=== PATIENT | female | born 1960 | race Caucasian/White ===

== ENCOUNTER → 2017-04-28 | Outpatient (CLI) | payer BC ==
[~2017-04-28] MED LIST: ASPI1TAB15 PO; OMEG100011 PO; VITA100066 PO; VITMTA PO
[2017-04-28 18:46] LABS: ALBUMIN 4.2 GM/DL (3.2-5.2); ALKALINE PHOSPHATASE 85 U/L (45-117); ALT/SGPT 29 U/L (12-78); ANION GAP 9 MEQ/L (8-16); AST/SGOT 17 U/L (15-37); BILIRUBIN,TOTAL 0.5 MG/DL (0.2-1.0); BLOOD UREA NITROGEN 15 MG/DL (7-18); CALCIUM LEVEL 9.2 MG/DL (8.5-10.1); CARBON DIOXIDE LEVEL 28 MEQ/L (21-32); CHLORIDE LEVEL 107 MEQ/L (98-107); CREATININE FOR GFR 0.77 MG/DL (0.55-1.02); GLOMERULAR FILTRATION RATE > 60.0 (>51); GLUCOSE, FASTING 80 MG/DL (70-105); PERCENT SATURATION 19.4 % (13.2-37.4); POTASSIUM SERUM 4.2 MEQ/L (3.5-5.1); SODIUM LEVEL 144 MEQ/L (136-145); TOTAL IRON BINDING CAPACITY 407 UG/DL (250-450); TOTAL PROTEIN 7.2 GM/DL (6.4-8.2)
[2017-04-28 18:54] LABS: BASO % 0.6 % (0.0-1.0); EOS # 0.1 K/mm3 (0.0-0.50); EOS % 1.7 % (0.0-3.0); LARGE UNSTAINED CELL # 0.1 K/mm3 (0.0-0.4); LARGE UNSTAINED CELL % 1.4 % (0.0-4.0); LYMPH # 1.6 K/mm3 (1.5-4.5); LYMPH % 26.1 % (24.0-44.0); MEAN CORPUSCULAR HEMOGLOBIN 28.7 pg (27.0-33.0); MEAN CORPUSCULAR HGB CONC 33.2 g/dl (32.0-36.5); MEAN CORPUSCULAR VOLUME 86.4 fl (80.0-96.0); MONO # 0.4 K/mm3 (0.0-0.8); MONO % 6.8 % (0.0-5.0); NEUTROPHILS # 3.6 K/mm3 (1.8-7.7); NEUTROPHILS % 63.4 % (36.0-66.0); PLATELET COUNT, AUTOMATED 348 k/mm3 (150-450); RED CELL DISTRIBUTION WIDTH 15.4 % (11.5-14.5); WHITE BLOOD COUNT 5.7 K/mm3 (4.0-10.0)
[2017-05-02 00:07] LABS: Lyme Disease IgG/IgM Antibodie <0.91 ISR (0.00-0.90); Lyme Disease IgM Ab Quantitati <0.80 index (0.00-0.79)
== END ==
LOC: M ADAMS 12:42
PROVIDERS: ATTEND Physician Assistant
DX: R53.83 Other fatigue (principal)

== ENCOUNTER → 2017-11-01 | Outpatient (CLI) | payer BC | LOC: M ADAMS 10:39 | DX: J21.0 Acute bronchiolitis due to respiratory syncytial virus (principal) | CPT/HCPCS: 71046 ==

== ENCOUNTER → 2018-05-11 | Outpatient (REF) | payer BC | LOC: M LAB REF 09:37 | DX: N39.0 Urinary tract infection, site not specified (principal) | CPT/HCPCS: 87186 ==

== ENCOUNTER → 2018-06-12 | Outpatient (REF) | payer BC | LOC: M LAB REF 16:38 | DX: N39.0 Urinary tract infection, site not specified (principal) | CPT/HCPCS: 87086 ==

== ENCOUNTER 2018-07-13 07:38 | Emergency (ER) | payer BC ==
[2018-07-13] MEDS: traMADol 50 MG TAB PO (08:24)
[2018-07-13] MEDS: ACETAMINOPHEN 325 MG TAB PO (08:25)
== END 2018-07-13 09:21 | disposition home or self-care (01) ==
LOC: M ED 07:38
DX: S39.002A Unspecified injury of muscle, fascia and tendon of lower back, initial encounter (principal); X50.0XXA Overexertion from strenuous movement or load, initial encounter; Y92.018 Other place in single-family (private) house as the place of occurrence of the external cause; M62.838 Other muscle spasm; A69.20 Lyme disease, unspecified; G43.909 Migraine, unspecified, not intractable, without status migrainosus; Z88.1 Allergy status to other antibiotic agents
CPT/HCPCS: 99283

== ENCOUNTER → 2019-01-14 | Outpatient (CLI) | payer BC ==
[~2019-01-14] MED LIST changes: +IBUP-1022 PO; +IBUP80TA PO; +PROHANCE 279.3MG/ML 15ML VIAL (A9576) As Ordered ONE; +ULTR50TA8 PO
--- NOTE | 2019-01-14 12:26 | REP ---
MR LUMBAR SPINE WITH AND WITHOUT CONTRAST: HISTORY: Post laminectomy syndrome. CONTRAST: 12 mL. COMPARISON: 01/14/2019 Decreased signal intensity on T2-weighted images is present in the L2-3, L3-4, and L5-S1 intervertebral discs. The discs are decreased in height. These findings are consistent with disc degeneration. There is no disc bulge or herniation at the L1-2 level. The L1 nerves exit the neural foramina without compression. A diffuse disc bulge is present at the L2-3 level. There is minimal compression of the thecal sac. There is hypertrophy of the ligamenta flava and posterior articulating facets. The L2 nerves exit the neural foramina without compression. A diffuse disc bulge is present at the L3-4 level. There is hypertrophy of the ligamenta flava and posterior articulating facets. These findings produce mild central canal stenosis. The L3 nerves exit the neural foramina without compression. A diffuse disc bulge is present at the L4-5 level. This abuts the thecal sac. There is hypertrophy of the posterior articulating facets. The L4 nerves exit the neural foramina without compression. A laminectomy defect is present. Enhancing scar tissue is present at the laminectomy site and in the lateral aspect of the spinal canal. The scar tissue involves the L5 nerves. A diffuse disc bulge is present at the L5-S1 level. There is no thecal sac compression. There is hypertrophy of the posterior articulating facets. The L5 nerve exits the neural foramina without compression. A laminectomy defect is present. Enhancing scar tissue is present at the laminectomy site and in the lateral aspects of the spinal canal. The scar tissue involves the S1 nerves. The conus medullaris is normal in appearance terminating at the level of the L1-2 intervertebral disc. Normal signal intensity is present in the lumbar vertebral bodies. IMPRESSION: 1. Diffuse disc bulge at the L2-3 level with minimal thecal sac compression. This is a new finding. 2. Mild central canal stenosis at the L3-4 level secondary to disc bulge ligamentous and facet hypertrophy. This is a new finding. 3. The patient is status post L4-5 and L5-S1 laminectomy. Scar tissue involves the L5 and S1 nerves. The postoperative change at the L4-5 level is a new finding. Electronically Signed by Sabino Monroy MD 01/14/2019 12:29 P
== END ==
LOC: M RAD 10:28
PROVIDERS: ATTEND Pain Medicine Interventional Pain Medicine
DX: M96.1 Postlaminectomy syndrome, not elsewhere classified (principal); M51.26 Other intervertebral disc displacement, lumbar region; M48.061 Spinal stenosis, lumbar region without neurogenic claudication
CPT/HCPCS: 72158; A9576

== ENCOUNTER → 2019-04-26 | Outpatient (REF) | payer BC ==
[~2019-04-26] MED LIST changes: -PROHANCE 279.3MG/ML 15ML VIAL (A9576) As Ordered ONE
== END ==
LOC: M LAB REF 10:02
PROVIDERS: ATTEND Physician Assistant
DX: N39.0 Urinary tract infection, site not specified (principal)

== ENCOUNTER → 2019-08-11 | Outpatient (CLI) | payer BC ==
--- NOTE | 2019-08-11 20:39 | REP ---
Clinical: Bilateral hip pain. Technique: Neutral and frog lateral views of the right and left hip. Findings: Minimal symmetric age-related changes are appreciated bilaterally including subtle increase sclerosis to the acetabular roof with minimal joint space narrowing. No overt osteoarthritic degenerative changes. No acute fracture dislocation. Surrounding soft tissues are unremarkable. Impression: Minimal symmetric age-related changes. Electronically Signed by Jamar Trivedi MD 08/11/2019 08:30 P
== END ==
LOC: M ADAMS 11:37
PROVIDERS: ATTEND Physician Assistant
DX: M70.72 Other bursitis of hip, left hip (principal); M25.552 Pain in left hip

== ENCOUNTER → 2019-09-03 | Outpatient (CLI) | payer BC ==
--- NOTE | 2019-09-03 16:58 | REP ---
Two-view chest: 09/20/2019. Indication: Cough. Comparison: 11/01/2017. Findings: The lungs are clear. There is no pleural effusion or pneumothorax. The cardiomediastinal silhouette is unremarkable. Impression: No acute cardiopulmonary process. Electronically Signed by Marcos Lewis DO 09/03/2019 04:50 P
== END ==
LOC: M ADAMS 14:54
PROVIDERS: ATTEND Physician Assistant
DX: R05 Cough (principal)

== ENCOUNTER → 2019-10-13 | Outpatient (CLI) | payer BC ==
--- NOTE | 2019-10-13 17:33 | REP ---
Clinical: Cough . Comparison: 08/24/2019 . Technique: PA and lateral. Findings: The mediastinum and cardiac silhouette are normal. The lung rosado are clear and without acute consolidation, effusion, or pneumothorax. The skeletal structures are intact and normal. Impression: 1. No acute cardiopulmonary process. Electronically Signed by Jamar Trivedi MD 10/13/2019 05:24 P
== END ==
LOC: M ADAMS 17:09
PROVIDERS: ATTEND Physician Assistant
DX: R05 Cough (principal)

== ENCOUNTER → 2020-03-14 | Outpatient (CLI) | payer BC ==
[2020-03-14 17:23] LABS: BASO # 0.1 10^3/uL (0.0-0.2); BASO % 0.7 % (0.0-1.0); EOS # 0.2 10^3/uL (0.0-0.5); EOS % 2.5 % (0.0-3.0); HEMATOCRIT 35.6 % (36.0-47.0); HEMOGLOBIN 11.7 g/dl (12.0-15.5); LYMPH # 1.6 10^3/uL (1.5-5.0); LYMPH % 22.7 % (24.0-44.0); MEAN CORPUSCULAR HEMOGLOBIN 29.2 pg (27.0-33.0); MEAN CORPUSCULAR HGB CONC 32.9 g/dl (32.0-36.5); MEAN CORPUSCULAR VOLUME 88.8 fl (80.0-96.0); MONO # 0.7 10^3/uL (0.0-0.8); MONO % 10.4 % (0.0-5.0); NEUTROPHILS # 4.4 10^3/uL (1.5-8.5); NEUTROPHILS % 63.4 % (36.0-66.0); PLATELET COUNT, AUTOMATED 401 10^3/uL (150-450); RED BLOOD COUNT 4.01 10^6/uL (4.00-5.40); WHITE BLOOD COUNT 6.9 10^3/uL (4.0-10.0)
[2020-03-14 17:31] LABS: ALBUMIN 3.9 GM/DL (3.2-5.2); ALT/SGPT 28 U/L (12-78); BILIRUBIN,TOTAL 0.3 MG/DL (0.2-1.0); BLOOD UREA NITROGEN 21 MG/DL (7-18); CALCIUM LEVEL 8.4 MG/DL (8.8-10.2); CARBON DIOXIDE LEVEL 28 MEQ/L (21-32); CHLORIDE LEVEL 107 MEQ/L (98-107); CREATININE FOR GFR 0.99 MG/DL (0.55-1.30); GLOMERULAR FILTRATION RATE > 60.0 (>45); GLUCOSE, FASTING 84 MG/DL (70-100); IRON (FE) 84 UG/DL (50-170); PERCENT SATURATION 24.1 % (13.2-45.0); POTASSIUM SERUM 3.9 MEQ/L (3.5-5.1); SODIUM LEVEL 140 MEQ/L (136-145); TOTAL IRON BINDING CAPACITY 349 UG/DL (250-450); TOTAL PROTEIN 6.8 GM/DL (6.4-8.2)
[2020-03-14 17:32] LABS: FERRITIN 7 NG/ML (8-252)
== END ==
LOC: M WUC 14:36
PROVIDERS: ATTEND Physician Assistant
DX: R53.83 Other fatigue (principal)

== ENCOUNTER → 2020-03-29 | Outpatient (REF) | payer BC ==
[2020-03-29 12:59] LABS: HEMATOCRIT 38.4 % (36.0-47.0); HEMOGLOBIN 12.4 g/dl (12.0-15.5)
== END ==
LOC: M LABDRWAD 12:19
PROVIDERS: ATTEND Physician Assistant
DX: R53.83 Other fatigue (principal)

== ENCOUNTER → 2020-08-11 | Outpatient (REF) | payer BC ==
[~2020-08-11] MED LIST changes: +ASPI-546 PO; -ASPI1TAB15 PO
== END ==
LOC: M LAB REF 08-10 14:31
PROVIDERS: ATTEND Dermatology
DX: D49.2 Neoplasm of unspecified behavior of bone, soft tissue, and skin (principal)

== ENCOUNTER → 2021-12-07 | Outpatient (CLI) | payer OTHER ==
[2021-12-07 15:35] LABS: BASO % 0.3 % (0.0-1.0); EOS # 0.1 10^3/uL (0.0-0.5); EOS % 1.4 % (0.0-3.0); HEMATOCRIT 39.4 % (36.0-47.0); HEMOGLOBIN 13.4 g/dl (12.0-15.5); LYMPH # 2.1 10^3/uL (1.5-5.0); LYMPH % 32.2 % (24.0-44.0); MEAN CORPUSCULAR HEMOGLOBIN 29.8 pg (27.0-33.0); MEAN CORPUSCULAR VOLUME 87.8 fl (80.0-96.0); MONO # 0.6 10^3/uL (0.0-0.8); MONO % 9.3 % (2.0-8.0); NEUTROPHILS # 3.6 10^3/uL (1.5-8.5); NEUTROPHILS % 56.5 % (36.0-66.0); PLATELET COUNT, AUTOMATED 390 10^3/uL (150-450); RED BLOOD COUNT 4.49 10^6/uL (4.00-5.40); WHITE BLOOD COUNT 6.5 10^3/uL (4.0-10.0)
[2021-12-07 16:03] LABS: ALBUMIN 3.9 GM/DL (3.2-5.2); ALT/SGPT 61 U/L (12-78); BILIRUBIN,TOTAL 0.3 MG/DL (0.2-1.0); BLOOD UREA NITROGEN 17 MG/DL (7-18); CALCIUM LEVEL 9.2 MG/DL (8.8-10.2); CARBON DIOXIDE LEVEL 30 MEQ/L (21-32); CHLORIDE LEVEL 106 MEQ/L (98-107); CREATININE FOR GFR 0.97 MG/DL (0.55-1.30); GLOMERULAR FILTRATION RATE > 60.0 (>45); GLUCOSE, FASTING 92 MG/DL (70-100); LIPASE 216 U/L (73-393); POTASSIUM SERUM 4.2 MEQ/L (3.5-5.1); SODIUM LEVEL 141 MEQ/L (136-145); TOTAL PROTEIN 7.1 GM/DL (6.4-8.2)
== END ==
LOC: M WUC 14:38
PROVIDERS: ATTEND Physician Assistant
DX: R10.9 Unspecified abdominal pain (principal)

== ENCOUNTER → 2021-12-08 | Outpatient (CLI) | payer OTHER | LOC: M RAD 07:38 | PROVIDERS: ATTEND Physician Assistant | DX: R10.9 Unspecified abdominal pain (principal); R14.0 Abdominal distension (gaseous) ==

== ENCOUNTER → 2021-12-09 | Outpatient (CLI) | payer OTHER ==
[~2021-12-09] MED LIST changes: +GASTROGRAFIN SOLUTION 30ML (Q9963) As Ordered ONE; +ISOVUE-370 76% 100ML VIAL As Ordered ONE
== END ==
LOC: M RAD 08:50
PROVIDERS: ATTEND Physician Assistant
DX: R10.9 Unspecified abdominal pain (principal); M85.9 Disorder of bone density and structure, unspecified; Z98.890 Other specified postprocedural states; K76.0 Fatty (change of) liver, not elsewhere classified; Z90.710 Acquired absence of both cervix and uterus; K42.9 Umbilical hernia without obstruction or gangrene
CPT/HCPCS: 74177; Q9963; Q9967

== ENCOUNTER 2022-04-01 01:13 | Emergency (ER) | payer OTHER ==
[~2022-04-01] VITALS: Ht 154.9 cm; Wt 60.5 kg
[~2022-04-01 01:13] MED LIST changes: -GASTROGRAFIN SOLUTION 30ML (Q9963) As Ordered ONE; -ISOVUE-370 76% 100ML VIAL As Ordered ONE
[2022-04-01 01:14] VITALS: BP 142/83
[2022-04-01] MEDS ORDERED: ACET-861 PO (01:24)
[2022-04-01] MEDS ORDERED: NORCO, ANEXSIA 5/325MG TABLET (HYDROcodone/ACETAMINOPHEN) PO ONE (03:20)
== END 2022-04-01 03:47 | disposition home or self-care (01) ==
LOC: M ED 01:13
DX: S93.401A Sprain of unspecified ligament of right ankle, initial encounter (principal); W11.XXXA Fall on and from ladder, initial encounter; Y92.009 Unspecified place in unspecified non-institutional (private) residence as the place of occurrence of the external cause; Y93.89 Activity, other specified; Y99.8 Other external cause status; M54.9 Dorsalgia, unspecified; G89.29 Other chronic pain; Z79.899 Other long term (current) drug therapy; Z88.1 Allergy status to other antibiotic agents; Z98.890 Other specified postprocedural states

== ENCOUNTER 2023-04-22 13:31 | Emergency (ER) | payer OTHER ==
[~2023-04-22] VITALS: Ht 154.9 cm; Wt 64.0 kg
[~2023-04-22 13:31] MED LIST changes: +ACET-861 PO
[2023-04-22] MEDS ORDERED: ONDANSETRON 4MG 2ML VIAL IV ONE (13:45)
[2023-04-22] MEDS ORDERED: fentaNYL 100 MCG/2 ML INJECTION IV ONE (13:45)
[2023-04-22] MEDS: fentaNYL 100 MCG/2 ML INJECTION IV PRN ×2 (14:44→15:48)
[2023-04-22] MEDS ORDERED: LIDOCAINE W/EPINEPHRINE 1% 20ML VIAL SC ONE (15:30)
[2023-04-22] MEDS ORDERED: LIDOCAINE 1% MDV 20ML VIAL SC ONE (15:35)
[2023-04-22] MEDS ORDERED: HYDR-3713 PO (16:45)
[2023-04-22] MEDS ORDERED: NORCO 5/325MG TABLET (HOME DOSE PACK) PO ONE (16:50)
[2023-04-22 16:51] VITALS: BP 130/72; TEMP 98; O2SAT 99
== END 2023-04-22 17:13 | disposition home or self-care (01) ==
LOC: M ED 13:31
DX: S52.351A Displaced comminuted fracture of shaft of radius, right arm, initial encounter for closed fracture (principal); S52.611A Displaced fracture of right ulna styloid process, initial encounter for closed fracture; W11.XXXA Fall on and from ladder, initial encounter; M54.50 Low back pain, unspecified; A69.20 Lyme disease, unspecified; Z88.1 Allergy status to other antibiotic agents; Z88.8 Allergy status to other drugs, medicaments and biological substances; Z79.810 Long term (current) use of selective estrogen receptor modulators (SERMs); Z79.899 Other long term (current) drug therapy
CPT/HCPCS: 73100; 73110; 73200; 96372; 96374; 96375; 96376; 99284; J0665; J3010

== ENCOUNTER 2023-04-25 14:15 | Day surgery (SDC) | payer OTHER ==
[~2023-04-25] VITALS: Ht 154.9 cm; Wt 57.6 kg
[~2023-04-25 14:15] MED LIST changes: +HYDR-3713 PO
[2023-04-25] MEDS ORDERED: dexAMETHasone 10MG/1ML VIAL PRES.FREE PN ONE (16:00)
[2023-04-25] MEDS ORDERED: ROPIvacaine 0.5% 30ML VIAL PN ONE (16:00)
[2023-04-25] MEDS ORDERED: LIDOCAINE 1% SDV 5ML VIAL PN ONE (16:00)
[2023-04-25] MEDS ORDERED: MIDAZOLAM INJ 2MG/2ML VIAL IV PRN (16:00)
[2023-04-25] MEDS ORDERED: fentaNYL 100 MCG/2 ML INJECTION IV PRN (16:00)
[2023-04-25] MEDS ORDERED: fentaNYL 100 MCG/2 ML INJECTION As Ordered ONE (16:57)
[2023-04-25] MEDS ORDERED: propofoL 200 MG/20 ML VIAL As Ordered ONE (16:57)
[2023-04-25] MEDS ORDERED: MIDAZOLAM INJ 2MG/2ML VIAL As Ordered ONE (16:57)
[2023-04-25] MEDS ORDERED: LIDOCAINE 2% 100MG/5ML SDV (FOR ANES.) As Ordered ONE (16:57)
[2023-04-25] MEDS ORDERED: ONDANSETRON 4MG 2ML VIAL As Ordered ONE (17:00)
[2023-04-25] MEDS ORDERED: KETOROLAC 60MG 2ML VIAL As Ordered ONE (17:00)
[2023-04-25] MEDS ORDERED: ceFAZolin 1GM VIAL As Ordered ONE (17:21)
[2023-04-25] MEDS ORDERED: PERC5TAB12 PO (18:34)
[2023-04-25 19:20] VITALS: BP 134/69; TEMP 98.3; O2SAT 97
== END 2023-04-25 19:42 | disposition home or self-care (01) ==
LOC: M SDC 14:15
PROVIDERS: ATTEND Orthopaedic Surgery Hand Surgery
DX: S52.501A Unspecified fracture of the lower end of right radius, initial encounter for closed fracture (principal); W11.XXXA Fall on and from ladder, initial encounter; Y92.89 Other specified places as the place of occurrence of the external cause; Y93.9 Activity, unspecified; Y99.9 Unspecified external cause status; Z88.1 Allergy status to other antibiotic agents
CPT/HCPCS: 25607; 64418; 76000; C1713; J0690; J1100; J1885; J2250; J2405; J3010

== ENCOUNTER → 2023-05-04 | Outpatient (CLI) | payer OTHER ==
[~2023-05-04] MED LIST changes: +PERC5TAB12 PO
== END ==
LOC: M SOG 08:44
PROVIDERS: ATTEND Physician Assistant
DX: M25.531 Pain in right wrist (principal)

== ENCOUNTER → 2023-06-07 | Outpatient (CLI) | payer OTHER | LOC: M SOG 08:56 | PROVIDERS: ATTEND Physician Assistant | DX: S52.501D Unspecified fracture of the lower end of right radius, subsequent encounter for closed fracture with routine healing (principal); M25.631 Stiffness of right wrist, not elsewhere classified ==

== ENCOUNTER → 2024-04-19 | Outpatient (CLI) | payer OTHER | LOC: M RAD 10:40 | PROVIDERS: ATTEND Orthopaedic Surgery | DX: M48.061 Spinal stenosis, lumbar region without neurogenic claudication (principal); M51.26 Other intervertebral disc displacement, lumbar region ==

== ENCOUNTER → 2025-01-13 | Outpatient (REF) | payer OTHER | LOC: M SFHCDERM 08:22 | PROVIDERS: ATTEND Physician Assistant | DX: D48.9 Neoplasm of uncertain behavior, unspecified (principal); L57.0 Actinic keratosis ==